=== PATIENT | male | born 1940 | race Caucasian/White ===

== ENCOUNTER 2018-05-12 13:07 | Observation (INO) | payer OTHER ==
--- OUTSIDE RECORDS SUMMARY | 2018-05-12 13:09 | XMS REPORT ---
:1940 Author Organization eClinicalWorks Care Team Providers Name Role Phone Rudy Fair Provider Role Unavailable Allergies No Known Allergies Problems Problem Type Condition Code Onset Dates Condition Status Problem Hypertension I10 Active Problem Paroxysmal a-fib I48.0 Active Problem Chronic urinary tract infection N39.0 Active Problem Gastritis without bleeding, K29.70 Active unspecified chronicity, unspecified gastritis type Assessment Esophageal stenosis K22.2 Active Problem Odynophagia R13.10 Active Assessment Gastritis without bleeding, K29.70 Active unspecified chronicity, unspecified gastritis type Problem Esophageal stenosis K22.2 Active Problem 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 Problem Renal disease N28.9 Active Problem Calculus of kidney and ureter N20.2 Active Problem Hx of urinary frequency Z87.898 Active Assessment Renal disease N28.9 Active Assessment Paroxysmal a-fib I48.0 Active Assessment Allergic rhinitis, seasonal J30.2 Active Assessment Hypertension I10 Active Problem Allergic rhinitis, seasonal J30.2 Active Problem Hyperlipemia, mixed E78.2 Active Assessment Hyperlipemia, mixed E78.2 Active Problem Back pain M54.9 Active Problem Hyperglycemia R73.9 Active Medications Medication Code Code Instructions Start End Status Dosage System Date Date Nasonex [facility] 47654812076 50 MCG/ACT Active 2 sprays in Nasally Once a each day nostril Aspirin 81 [facility] 94014212998 81 MG Orally Active 1 tablet Once a day Lipitor [facility] 07529984681 40 MG Orally Active 1 tablet Once a day Metoprolol ND 02604285559 25 MG Orally Active 1 tablet Tartrate Twice a day with food Lipitor ND 97041910146 40 MG Active TAKE 1 TABLET ONE TIME DAILY Metoprolol ND 62514324252 25 MG Orally Active 1 tablet Tartrate Twice a day with food Vascepa [facility] 95497402820 1 GM Orally Apr 12, Aug 10, Active 2 capsules Twice a day 2017 2017 with meals Results No Known Results Summary Purpose eClinicalWorks Submission
--- OUTSIDE RECORDS SUMMARY | 2018-05-12 13:09 | XMS REPORT ---
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 Problem Hypertension I10 Active Assessment Hypertension I10 Active Assessment Renal disease N28.9 Active Assessment Allergic rhinitis, seasonal J30.2 Active Assessment Hyperlipemia, mixed E78.2 Active Assessment Odynophagia R13.10 Active Problem Chronic urinary tract infection N39.0 Active Assessment Paroxysmal a-fib I48.0 Active Problem Paroxysmal a-fib I48.0 Active Medications Medication Code Code Instructions Start End Status Dosage System Date Date Nasonex [facility] 30211122455 50 MCG/ACT Active 2 sprays Nasally Once a in each day nostril Metoprolol [facility] 25975641034 25 MG Orally Active 1 tablet Tartrate Twice a day with food Lipitor [facility] 74150641638 40 MG Orally Active 1 tablet Once a day Aspirin 81 [facility] 68721145459 81 MG Orally Active 1 tablet Once a day Results No Known Results Summary Purpose eClinicalWorks Submission
--- OUTSIDE RECORDS SUMMARY | 2018-05-12 13:09 | XMS REPORT ---
[...] Active myelopathy Problem Hypertension I10 Active Assessment Paroxysmal a-fib I48.0 Active Problem Chronic urinary tract infection N39.0 Active Problem Paroxysmal a-fib I48.0 Active Medications Medication Code Code Instructions Start End Date Status Dosage System Date Metoprolol [facility] 47865420425 25 MG Orally Active 1 tablet Tartrate Twice a day with food Lipitor [facility] 00006611899 40 MG Orally Active 1 tablet Once a day Results No Known Results Summary Purpose eClinicalWorks Submission
[2018-05-12] MEDS ORDERED: NITROGLYCERIN 0.4 MG/TAB SL ONE (13:19)
[2018-05-12] MEDS ORDERED: ASPIRIN 81 MG CHEWABLE TABLET ONE (13:19)
[2018-05-12] MEDS ORDERED: ONDANSETRON 4 MG/2 ML VIAL ONE (13:20)
[2018-05-12] MEDS ORDERED: MORPHINE 4 MG/ML SYR ONE (13:20)
[2018-05-12] MEDS ORDERED: FENTANYL CITR 100 MCG/2 ML ONE ×2 (13:25→13:46)
[2018-05-12] MEDS ORDERED: NA CHLORIDE 0.9% 1,000 ML ONE (13:25)
[2018-05-12 13:33] LABS: Absolute Lymphocytes (CBC) 1.7 K/uL (0.7-4.9); Absolute Monocytes 0.6 K/uL (0.1-1.3); Absolute Neutrophil 4.2 K/uL (1.8-8.0); Basophils % 0.9 % (0-1.3); Eosinophils % 2.3 % (0-4.4); Lymphocytes % 25.5 % (15.3-44.8); MCH 31.5 pg (27.0-35.0); MCV 91.6 fL (80-100); MPV 9.3 fL (7.6-11.3); Monocytes % 8.6 % (3.3-12.3); RBC Red Blood Cell Count 4.48 M/uL (4.33-5.43)
[2018-05-12 13:40] LABS: Protime INR 1.04
[2018-05-12 13:52] LABS: ALT/SGPT 31 U/L (12-78); AST/SGOT 22 U/L (15-37); Albumin 3.9 g/dL (3.4-5.0); Alkaline Phosphatase 96 U/L (45-117); BUN Blood Urea Nitrogen 22 mg/dL (7-18); Bicarbonate 30 mmol/L (21-32); Bilirubin Direct 0.2 mg/dL (0-0.2); Bilirubin Total 0.6 mg/dL (0.2-1.0); Creatine Phosphokinase 70 U/L (39-308); Glucose Level 105 mg/dL (74-106); NT PRO-BNP 560 pg/mL (<450); Potassium 4.3 mmol/L (3.5-5.1); Protein, Total 7.1 g/dL (6.4-8.2); Sodium Level 140 mmol/L (136-145); Troponin (Emerg Dept Use Only) < 0.02 ng/mL (0.0-0.045)
--- NOTE | 2018-05-12 14:02 | RAD REPORT ---
EXAM DESCRIPTION: RAD - Chest Single View - 05/12/2018 1:33 pm CLINICAL HISTORY: Chest pain, diaphoretic COMPARISON: August 2015 TECHNIQUE: AP portable chest image was obtained 1317 hours . FINDINGS: Mild chronic interstitial lung disease is evident accentuated by shallow inspiration. Lung base atelectasis present. Heart and vasculature are normal. No measurable pleural effusion and no pn eumothorax. No gross bony abnormality seen. No acute aortic findings suspected. IMPRESSION: No acute cardiopulmonary process. No significant interval change.
--- NOTE | 2018-05-12 14:36 | RAD REPORT ---
EXAM DESCRIPTION: CT - Chest For Pe Angio - 05/12/2018 2:17 pm CLINICAL HISTORY: Chest pain, shortness of breath COMPARISON: Portable chest same date TECHNIQUE: Dynamically enhanced 3 mm thick images of the chest were obtained during administration o f approximately 150mL Isovue 370 IV contrast. Coronal and oblique MIP reconstruction images were gene rated and reviewed. Exam utilizes a protocol to evaluate the pulmonary arterial tree. All CT scans are performed using dose optimization technique as appropriate and may include automated exposure control or mA/KV adjustment according to patient size. FINDINGS: No pulmonary emboli are identified. The aorta as imaged shows no acute or suspicious finding. No pericardial thickening or effusion. No focal mass or consolidation. Interstitial markings are prominent in the lower lung villa. This is nonspecific in could be chronic interstitial lung disease or minimal interstitial edema or infiltrat e. No pleural effusion or pleural thickening. No mediastinal or hilar suspicious masses. No chest wall masses or abnormal axillary lymphadenopathy. Disc and bony degenerative changes are present. No pathologic bone process suspected. IMPRESSION: No pulmonary emboli identified. No mass or consolidation. Prominent lung base interstitial markings accentuated by motion. Fibrosis, interstitial edema and min imal interstitial infiltrate can have a similar appearance.
[2018-05-12] MEDS ORDERED: ENOXAPARIN 100 MG/ML SYR SQ ONE (15:00)
[2018-05-12] MEDS ORDERED: HYDROMORPHONE HCL 0.5 MG/0.5 ML INJ ONE ×2 (15:33→17:52)
--- NOTE | 2018-05-12 15:56 | EDPHYS ---
Physician Documentation [facility] Name: John Rowan Age: 77 yrs Sex: Male : 1940 Arrival Date: 05/12/2018 Time: 13:11 Bed 2 Private MD: Flakito Combs ED Physician Clayton Dickinson HPI: 05/12 14:40 This 77 yrs old Male presents to ER via Ambulatory with complaints of Chest rn Pain. 14:40 The patient or guardian reports chest pain that is located primarily in the anterior rn chest wall, left. Onset: just prior to arrival. The pain does not radiate. Associated signs and symptoms: Pertinent positives: diaphoresis, Pertinent negatives: abdominal pain, recent travel, shortness of breath, syncope, vomiting. 14:41 Duration: The patient or guardian reports a single episode, that is still ongoing. rn Severity of pain: At its worst the pain was severe in the emergency department the pain is unchanged. The patient has not experienced similar symptoms in the past. The patient has not recently seen a physician. Reports 1 hour of left sided chest pain, tight and dull, non-radiating. No sob, no trauma. . Historical: - Allergies: 13:41 No Known Allergies; la1 - PMHx: 13:41 Hypertension; High Cholesterol; irregular HR; la1 - PSHx: 13:41 back surgery; shoulder surgery; la1 - Immunization history:: Adult Immunizations up to date. - Social history:: Smoking status: Patient/guardian denies using tobacco. - Ebola Screening: : No symptoms or risks identified at this time. - Family history:: not pertinent. - Hospitalizations: : No recent hospitalization is reported. ROS: 14:41 Constitutional: Negative for fever, chills, and weight loss, Eyes: Negative for injury, rn pain, redness, and discharge, Neck: Negative for injury, pain, and swelling, Cardiovascular: + chest pain Respiratory: Negative for shortness of breath, cough, wheezing Abdomen/GI: Negative for abdominal pain, nausea, vomiting, diarrhea, and constipation, MS/Extremity: Negative for injury and deformity, Skin: Negative for injury, rash, and discoloration, Neuro: Negative for headache, weakness, numbness, tingling, and seizure. Exam: 14:41 Constitutional: This is a well developed, well nourished patient who is awake, alert, rn diaphoretic, and clutching chest Head/Face: Normocephalic, atraumatic. Eyes: Pupils equal round and reactive to light, extra-ocular motions intact. Lids and lashes normal. Conjunctiva and sclera are non-icteric and not injected. Cornea within normal limits. Periorbital areas with no swelling, redness, or edema. Neck: Trachea midline, no thyromegaly or masses palpated, and no cervical lymphadenopathy. Supple, full range of motion without nuchal rigidity, or vertebral point tenderness. No Meningismus. Cardiovascular: Regular rate and rhythm with a normal S1 and S2. No gallops, murmurs, or rubs. Normal PMI, no JVD. No pulse deficits. Respiratory: mild tachypnea, clear bilateral breath sounds Abdomen/GI: Soft, non-tender, with normal bowel sounds. No distension or tympany. No guarding or rebound. No evidence of tenderness throughout. Skin: Clammy and diaphoretic MS/ Extremity: Pulses equal, no cyanosis. Neurovascular intact. Full, normal range of motion. Equal circumference. Neuro: Awake and alert, GCS 15, oriented to person, place, time, and situation. Cranial nerves II-XII grossly intact. Motor strength 5/5 in all extremities. Sensory grossly intact. Vital Signs: 13:36 BP 102 / 79; Pulse 84; Resp 28; Temp 98.6(O); Pulse Ox 95% on 2 lpm NC; la1 13:44 Weight 88 kg; la1 14:17 BP 138 / 69; Pulse 73; Resp 22; Pulse Ox 96% on 2 lpm NC; la1 15:09 BP 114 / 76; Pulse 75; Resp 18; Pulse Ox 98% on 2 lpm NC; Pain 3/10; ph 16:06 BP 119 / 73; Pulse 71; Resp 18; Pulse Ox 100% on 2 lpm NC; ph 16:58 BP 111 / 78; Pulse 68; Resp 18; Temp 97.8; Pulse Ox 98% on R/A; ph MDM: 13:15 Patient medically screened. rn 13:44 ED course: [address] elevation or ischemic changes, improved pain, put in order rn for stat creatinine for ct PE protocol. 13:51 ED course: Creatinine 1.6 per lab, given normal ECGs and pleuritic pain with relative rn hypotension, risk to kidneys understood and benefit of diagnosis in this diaphoretic and uncomfortable man outweighs risks. . 14:39 ED course: CT PE protocol negative, paging Dr. Akbar for chest pain. . rn 14:41 ED course: Consulted with Dr. Akbar, ok to admit here and he will consult, heidy rn ordered for suspected NSTEMI.. 14:58 Differential diagnosis: acute myocardial infarction, acute pericarditis, anxiety, rn coronary artery disease chest wall pain, costochondritis, pericarditis, pleurisy, pneumonia, pneumothorax, pulmonary embolus, stable angina, thoracic aortic disection. The patient was given aspirin in the Emergency Department. Data reviewed: vital signs, nurses notes, lab test result(s), EKG, radiologic studies, CT scan, plain films, and as a result, I will admit patient. Counseling: I had a detailed discussion with the patient and/or guardian regarding: the historical points, exam findings, and any diagnostic results supporting the discharge/admit diagnosis, lab results, radiology results, the need for further work-up and treatment in the hospital. Response to treatment: the patient's symptoms have markedly improved after treatment, and as a result, I will admit patient. Admission orders: after a detailed discussion of the patient's condition and case, the admit orders are written by me. 05/12 13:15 Order name: Basic Metabolic Panel; Complete Time: 13:54 rn 05/12 13:15 Order name: CBC with Diff; Complete Time: 13:45 rn 05/12 13:15 Order name: Ckmb; Complete Time: 13:54 rn 05/12 13:15 Order name: CPK; Complete Time: 13:54 rn 05/12 13:15 Order name: LFT's; Complete Time: 13:54 rn 05/12 13:15 Order name: Magnesium; Complete Time: 13:54 rn 05/12 13:15 Order name: NT PRO-BNP; Complete Time: 13:54 rn 05/12 13:15 Order name: PT-INR; Complete Time: 13:54 rn 05/12 13:15 Order name: Ptt, Activated; Complete Time: 13:54 rn 05/12 13:15 Order name: Troponin (emerg Dept Use Only); Complete Time: 13:54 rn 05/12 13:15 Order name: XRAY Chest (1 view); Complete Time: 14:26 rn 05/12 13:45 Order name: CT Chest For PE Angio; Complete Time: 14:37 rn 05/12 13:45 Order name: Creatinine for detailer furniture 05/12 14:39 Order name: Troponin (emerg Dept Use Only); Complete Time: 15:51 rn 05/12 13:15 Order name: EKG; Complete Time: 13:16 rn 05/12 13:15 Order name: Cardiac monitoring; Complete Time: 13:31 rn 05/12 13:15 Order name: EKG - Nurse/Tech; Complete Time: 13:31 rn 05/12 13:15 Order name: IV Saline Lock; Complete Time: 13:29 rn 05/12 13:15 Order name: Labs collected and sent; Complete Time: 13:31 rn 05/12 14:38 Order name: EKG; Complete Time: 14:39 rn 05/12 13:15 Order name: O2 Per Protocol; Complete Time: 13:31 rn 05/12 13:15 Order name: O2 Sat Monitoring; Complete Time: 13:31 rn Administered Medications: 13:12 Drug: morphine 4 mg Route: IVP; Site: right antecubital; ss 14:19 Follow up: Response: No adverse reaction; Pain is decreased la1 13:12 Drug: Zofran 4 mg Route: IVP; Site: right antecubital; ss 14:19 Follow up: Response: No adverse reaction la1 13:15 Drug: Nitroglycerin 0.4 mg Route: Sublingual; ss 14:19 Follow up: Response: No adverse reaction; Pain is decreased la1 13:15 Drug: NS 0.9% 500 ml Route: IV; Rate: bolus; Site: right antecubital; ss 13:17 Drug: fentaNYL (PF) 50 mcg Route: IVP; Site: right antecubital; ss 14:19 Follow up: Response: No adverse reaction; Pain is decreased la1 13:43 Not Given (Other Intervention Used): fentaNYL (PF) 50 mcg IVP once la1 13:43 Drug: fentaNYL (PF) 25 mcg Route: IVP; Site: right antecubital; la1 14:19 Follow up: Response: No adverse reaction; Pain is decreased la1 15:04 Drug: Lovenox 1 mg/kg {Note: 90 mg given.} Route: Sub-Q; Site: right lower abdomen; ph 16:05 Follow up: Response: No adverse reaction ph 15:30 Drug: Dilaudid 0.5 mg Route: IVP; Site: right antecubital; hb 15:57 Follow up: Response: No adverse reaction hb 17:53 Drug: Dilaudid 0.5 mg Route: IVP; Site: right antecubital; ph 17:53 Follow up: Response: No adverse reaction; Pain is decreased ph Disposition: 05/12/18 15:55 Hospitalization ordered by Flakito Combs for Observation. Preliminary diagnosis is Chest pain, unspecified. - Bed requested for Telemetry/MedSurg (observation). - Status is Observation. ph - Condition is Stable. - Problem is new. - Symptoms have improved. UTI on Admission? No Signatures: Dispatcher [employer] EDMS Fadia Brandon Roman, MD MD rn Smirch, Shelby RN YOLANDA Payam Dodge RN RN la Deborah Barnhart RN RN [facility]ose, RN RN Corrections: (The following items were deleted from the chart) 16:43 15:55 Hospitalization Ordered by Flakito Combs DO for Observation. Preliminary bd diagnosis is Chest pain, unspecified. Bed requested for Telemetry/MedSurg (observation). Status is Observation. Condition is Stable. Problem is new. Symptoms have improved. UTI on Admission? No. rn 17:56 16:43 05/12/2018 15:55 Hospitalization Ordered by Flakito Combs DO for Observation. ph Preliminary diagnosis is Chest pain, unspecified. Bed requested for Telemetry/MedSurg (observation). Status is Observation. Condition is Stable. Problem is new. Symptoms have improved. UTI on Admission? No. bd
--- NOTE | 2018-05-12 15:56 | ER ---
Nurse's Notes [facility] Name: John Rowan Age: 77 yrs Sex: Male : 1940 Arrival Date: 05/12/2018 Time: 13:11 Bed 2 Private MD: Flakito Combs Diagnosis: Chest pain, unspecified Presentation: 05/12 13:35 Presenting complaint: Patient states: sudden onset severe chest pain 1 hour KILN STOKER. la1 Transition of care: patient was not received from another setting of care. Onset of symptoms was May 12, 2018. Risk Assessment: Do you want to hurt yourself or someone else? Patient reports no desire to harm self or others. Initial Sepsis Screen: Does the patient meet any 2 criteria? No. Patient's initial sepsis screen is negative. Does the patient have a suspected source of infection? No. Patient's initial sepsis screen is negative. Care prior to arrival: None. 13:35 Method Of Arrival: Ambulatory la1 13:35 Acuity: SIOBHAN 2 la1 Historical: - Allergies: 13:41 No Known Allergies; la1 - PMHx: 13:41 Hypertension; High Cholesterol; irregular HR; la1 - PSHx: 13:41 back surgery; shoulder surgery; la1 - Immunization history:: Adult Immunizations up to date. - Social history:: Smoking status: Patient/guardian denies using tobacco. - Ebola Screening: : No symptoms or risks identified at this time. - Family history:: not pertinent. - Hospitalizations: : No recent hospitalization is reported. Screenin:39 Abuse screen: Denies threats or abuse. Nutritional screening: No deficits noted. la1 Tuberculosis screening: No symptoms or risk factors identified. Fall Risk None identified. Assessment: 13:37 General: Appears uncomfortable, Behavior is cooperative, anxious. Pain: Complains of la1 pain in chest Pain does not radiate. Pain currently is 10 out of 10 on a pain scale. Quality of pain is described as throbbing, Pain began 1 hour ago. Neuro: Level of Consciousness is awake, alert, obeys commands, Oriented to person, place, time, situation. Cardiovascular: Heart tones S1 S2 present Capillary refill < 3 seconds Rhythm is irregular. Respiratory: Airway is patent Respiratory effort is even, unlabored, Respiratory pattern is regular, symmetrical, tachypnea Breath sounds are clear bilaterally. GI: Abdomen is round non-distended, Bowel sounds present X 4 quads. Abd is soft and non tender X 4 quads. : No signs and/or symptoms were reported regarding the genitourinary system. Derm: Skin is diaphoretic, Skin temperature is cool. 14:45 Reassessment: Patient appears in no apparent distress at this time. Patient and/or ph family updated on plan of care and expected duration. Pain level reassessed. Patient is alert, oriented x 3, equal unlabored respirations, skin warm/dry/pink. Pt resting quietly, rates pain 3/10 and denies nausea or SOB, family at bedside, VSS, will continue to monitor. 15:31 Reassessment: Pt reports sharp left sided cheat pain 7/10. Dr. Dickinson notified, repeat hb EKG completed and Dilaudid administered as ordered. Family remains at bedside. 16:05 Reassessment: Patient appears in no apparent distress at this time. Patient and/or ph family updated on plan of care and expected duration. Pain level reassessed. Patient is alert, oriented x 3, equal unlabored respirations, skin warm/dry/pink. Pt reports that pain has decreased to 3/10, denies SOB or nausea, Dr Combs at bedside to speak w/ pt and family. 17:00 Reassessment: Patient appears in no apparent distress at this time. Patient and/or ph family updated on plan of care and expected duration. Pain level reassessed. Patient is alert, oriented x 3, equal unlabored respirations, skin warm/dry/pink. 17:35 Reassessment: Report called to YOLANDA Lamb. 17:45 Reassessment: Pt c/o chest pain 8/10 after repositioning in bed, ERP notified, see MAR. ph Vital Signs: 13:36 BP 102 / 79; Pulse 84; Resp 28; Temp 98.6(O); Pulse Ox 95% on 2 lpm NC; la1 13:44 Weight 88 kg; la1 14:17 BP 138 / 69; Pulse 73; Resp 22; Pulse Ox 96% on 2 lpm NC; la1 15:09 BP 114 / 76; Pulse 75; Resp 18; Pulse Ox 98% on 2 lpm NC; Pain 3/10; ph 16:06 BP 119 / 73; Pulse 71; Resp 18; Pulse Ox 100% on 2 lpm NC; ph 16:58 BP 111 / 78; Pulse 68; Resp 18; Temp 97.8; Pulse Ox 98% on R/A; ph Vitals: 15:09 Cardiac Rhythm Assessment Sinus rhythm. ph ED Course: 13:11 Patient arrived in ED. sb2 13:11 Flakito Combs DO is Private Physician. sb2 13:15 Clayton Dickinson MD is Attending Physician. rn 13:18 Inserted saline lock: 20 gauge in right antecubital area, using aseptic technique. ss Blood collected. Oxygen administration via nasal cannula \T\ 2L/min. 13:33 XRAY Chest (1 view) In Process Unspecified. EDMS 13:35 Payam Dodge, YOLANDA is Primary Nurse. la1 13:36 Triage completed. la1 13:37 Arm band placed on right wrist. EKG completed in triage. Results shown to MD. la1 13:38 Placed in gown. Bed in low position. Call light in reach. patient assessment coordinator on. Pulse ox la1 on. NIBP on. 14:17 CT Chest For PE Angio In Process Unspecified. EDMS 15:55 Flakito Combs DO is Hospitalizing Provider. rn Administered Medications: 13:12 Drug: morphine 4 mg Route: IVP; Site: right antecubital; ss 14:19 Follow up: Response: No adverse reaction; Pain is decreased la1 13:12 Drug: Zofran 4 mg Route: IVP; Site: right antecubital; ss 14:19 Follow up: Response: No adverse reaction la1 13:15 Drug: Nitroglycerin 0.4 mg Route: Sublingual; ss 14:19 Follow up: Response: No adverse reaction; Pain is decreased la1 13:15 Drug: NS 0.9% 500 ml Route: IV; Rate: bolus; Site: right antecubital; ss 13:17 Drug: fentaNYL (PF) 50 mcg Route: IVP; Site: right antecubital; ss 14:19 Follow up: Response: No adverse reaction; Pain is decreased la1 13:43 Not Given (Other Intervention Used): fentaNYL (PF) 50 mcg IVP once la1 13:43 Drug: fentaNYL (PF) 25 mcg Route: IVP; Site: right antecubital; la1 14:19 Follow up: Response: No adverse reaction; Pain is decreased la1 15:04 Drug: Lovenox 1 mg/kg {Note: 90 mg given.} Route: Sub-Q; Site: right lower abdomen; ph 16:05 Follow up: Response: No adverse reaction ph 15:30 Drug: Dilaudid 0.5 mg Route: IVP; Site: right antecubital; hb 15:57 Follow up: Response: No adverse reaction hb 17:53 Drug: Dilaudid 0.5 mg Route: IVP; Site: right antecubital; ph 17:53 Follow up: Response: No adverse reaction; Pain is decreased ph Outcome: 15:55 Decision to Hospitalize by Provider. rn 17:56 Patient left the ED. ph Signatures: Dispatcher [employer] EDMS Clayton Dickinson MD MD rn Smirch, Shelby, RN RN ss Payam Dodge RN RN la1 Deborah Barnhart RN RN Harmony Richardson RN RN Daily Waller sb2 Corrections: (The following items were deleted from the chart) 13:31 13:12 fentaNYL (PF) 50 mcg IVP in right antecubital ss
[2018-05-12] MEDS ORDERED: SODIUM CHLORIDE 0.9% 10ML INJ IV PRN (16:19)
[2018-05-12] MEDS ORDERED: ONDANSETRON 4 MG/2 ML VIAL IV PRN (16:19)
[2018-05-12] MEDS ORDERED: TRAMADOL HCL 50 MG TAB PO PRN (16:19)
[2018-05-12] MEDS ORDERED: HYDROCODONE/APAP 7.5/325 MG TAB PO PRN (16:19)
[2018-05-12] MEDS ORDERED: NITROGLYCERIN 0.4 MG/TAB SL PRN (16:19)
[2018-05-12] MEDS ORDERED: ACETAMINOPHEN 500 MG TAB PO PRN (16:19)
--- NOTE | 2018-05-12 16:31 | P.HP ---
Certification for Inpatient Patient admitted to: Observation With expected LOS: <2 Midnights Patient will require the following post-hospital care: None Practitioner: I am a practitioner with admitting privileges, knowledge of patient current condition, hospital course, and medical plan of care. Services: Services provided to patient in accordance with Admission requirements found in Title 42 Section 412.3 of the Code of Federal Regulations Patient History Date of Service: 05/12/18 Primary Care Provider: Dr. Fair; Cardiology-Dr. Akbar; GI-Dr. Terry Reason for admission: Chest pain History of Present Illness: 77-year-old male presented emergency room with chest pain. Patient presented with chest pain the left side. The pain was intense. He was associated with some diaphoresis. The patient came to the ER for further evaluation. In the ER patient was initially assessed by Cardiology. Chest pain was typical for CAD. Initial EKG and subsequent EKG unremarkable. Initial cardiac enzymes unremarkable. Chest pain improved with medication. Patient admitted for further evaluation. In the ER lab white count 6.6, hemoglobin 14. Sodium 140, potassium 4.3. BUN of 22, creatinine 1.6 with a GFR 42. Glucose 105. Initial cardiac enzymes unremarkable. BNP 560. Chest x-ray unremarkable. CT of the chest showed no pulmonary embolism, mass, or consolidation. When I saw the patient ER, pain was much improved. This patient still had some occasional left-sided chest pain. Family reports that he heard himself the other day while leaning over his boat. He recalls using his right arm to pull himself. He hit himself in the chest area. Patient also reports a history of hypertension, hyperlipidemia, GERD and gastric ulcers. Patient had EGD about 6 weeks ago await GI. He was found to have some stomach ulcers. Patient has been off aspirin since that time. Patient does not smoke or drink alcohol. Patient has seen Cardiology in the past. No recent cardiac evaluation. Allergies No Known Allergies Allergy (Verified 09/07/15 16:07) Home medications list reviewed: Yes Home Medications: Atorvastatin Calcium [Lipitor] 40 mg PO DAILY 09/07/15 Metoprolol Succinate [Toprol Xl] 25 mg PO BID 09/07/15 Aspirin 81 mg PO DAILY 09/08/15 - Past Medical/Surgical History Diabetic: No -: Hypertension -: Hyperlipidemia -: Gastric ulcer -: GERD -: Colonoscopy/EGD -: Back surgery -: Shoulder surgery Psychosocial/ Personal History: Patient is . He has children. - Family History Mother -: Heart disease (Grandmother with heart disease) - Social History Smoking Status: Never smoker Alcohol use: No CD- Drugs: No Caffeine use: Yes Place of Residence: Home Review of Systems General: Weakness, As per HPI Eyes: Unremarkable ENT: Unremarkable Respiratory: Unremarkable Cardiovascular: Chest Pain, As per HPI Gastrointestinal: Unremarkable Genitourinary: Unremarkable Musculoskeletal: Back Pain, As per HPI Integumentary: Unremarkable Neurological: Unremarkable Lymphatics: Unremarkable Physical Examination - Physical Exam General: Alert, In no apparent distress, Oriented x3, Cooperative HEENT: Atraumatic, Normocephalic, PERRLA, Mucous membr. moist/pink Neck: Supple, No Thyromegaly Respiratory: Clear to auscultation bilaterally, Normal air movement Cardiovascular: Normal pulses, Regular rate/rhythm, Other (Pain to ribcage area on the left side noted with palpation. ) Gastrointestinal: Normal bowel sounds, Soft and benign, Non-distended, No tenderness, No masses, No rebound, No guarding Musculoskeletal: No erythema, No warmth, Tenderness (point tenderness to the left rib cage region with palpation) Integumentary: No tenderness/swelling, No erythema, No warmth, No cyanosis Neurological: Normal speech, Normal strength at 5/5 x4 extr, Normal tone, Normal affect - Studies Laboratory Data (last 24 hrs) 05/12/18 13:15: PT 12.3, INR 1.04, APTT 28.9 05/12/18 13:15: WBC 6.6, Hgb 14.1, Hct 41.0, Plt Count 137 L 05/12/18 13:15: Sodium 140, Potassium 4.3, BUN 22 H, Creatinine 1.60 H, Glucose 105, Magnesium 2.0, Total Bilirubin 0.6, AST 22, ALT 31, Alkaline Phosphatase 96 Assessment and Plan Discharge Plan: Home Plan to discharge in: 24 Hours - Advance Directives Does patient have a Living Will: No Does patient have a Durable POA for Healthcare: No - Code Status/Comfort Care Code Status Assessed: Yes (Patient full code) Physician Review Additional Text: Impression: Left-sided chest pain with multiple risk factors. Possible injury/contusion to the ribcage region needs to be considered due to recent accident Hypertension Hyperlipidemia GERD with history of stomach ulcer Mild renal insufficiency likely mild dehydration Plan: Patient has multiple risk factors for heart disease. Patient will be admitted to evaluate chest pain. Will continue monitor cardiac enzymes and telemetry. Will order echocardiogram. Patient will start aspirin, Lipitor, and metoprolol. Patient with history of hypertension and hyperlipidemia. Cardiology consulted. Await further recommendation. Patient may require cardiac evaluation while hospitalized. Patient with history of GERD and stomach ulcer. Will start Protonix IV. Patient with mild renal insufficiency likely mild dehydration. Will start IV fluids. Will recheck lab tomorrow. Patient also with recent injury to the ribcage. Patient with point tenderness to the left ribcage region. Will provide medication for pain. CT scan did not show any contusion. Will reassess in the morning. Time Spent Managing Pts Care (In Minutes): 55
[2018-05-12] MEDS: ENOXAPARIN 40 MG/0.4 ML SQ SCH (17:00)
[2018-05-12] MEDS: NA CHLORIDE 0.9% 1,000 ML IV SCH (18:37)
[2018-05-12] MEDS: METOPROLOL TAR 25 MG TAB PO SCH (18:40)
[2018-05-12] MEDS ORDERED: ATORVASTATIN 40 MG TAB PO SCH (21:00)
[2018-05-12 22:37] LABS: CKMB Creatine Kinase MB 1.6 ng/mL (0.3-3.6); Creatine Phosphokinase 55 U/L (39-308); Troponin I < 0.02 ng/mL (0.0-0.045)
[2018-05-13] MEDS: MORPHINE 4 MG/ML SYR IV PRN ×2 (02:48→08:05)
[2018-05-13] MEDS: METOPROLOL TAR 25 MG TAB PO SCH (05:58)
[2018-05-13] MEDS: NA CHLORIDE 0.9% 1,000 ML IV SCH (05:59)
[2018-05-13 06:13] LABS: Absolute Lymphocytes (CBC) 1.4 K/uL (0.7-4.9); Absolute Monocytes 0.7 K/uL (0.1-1.3); Absolute Neutrophil 3.4 K/uL (1.8-8.0); Basophils % 0.5 % (0-1.3); Eosinophils % 3.3 % (0-4.4); Hematocrit 36.2 % (39.6-49.0); Lymphocytes % 23.9 % (15.3-44.8); MCH 31.5 pg (27.0-35.0); MCV 91.6 fL (80-100); MPV 9.8 fL (7.6-11.3); Monocytes % 11.7 % (3.3-12.3); RBC Red Blood Cell Count 3.95 M/uL (4.33-5.43)
[2018-05-13 06:41] LABS: Urine Appearance CLEAR; Urine Bilirubin NEGATIVE (NEG); Urine Blood NEGATIVE (NEG); Urine Color YELLOW; Urine Glucose NEGATIVE (NEG); Urine Protein NEGATIVE (NEG); Urine Specific Gravity >=1.030 (1.005-1.030); Urine Urobilinogen 0.2 mg/dL (0.2-1.0)
[2018-05-13 06:46] LABS: CKMB Creatine Kinase MB 1.8 ng/mL (0.3-3.6); Creatine Phosphokinase 53 U/L (39-308); Troponin I < 0.02 ng/mL (0.0-0.045)
[2018-05-13 06:51] LABS: Potassium 5.1 mmol/L (3.5-5.1); Thyroid Stimulating Hormone 3.1 uIU/mL (0.360-3.740)
[2018-05-13 06:53] LABS: Urine Microscopic Reflex NO UMIC
--- NOTE | 2018-05-13 08:16 | RAD REPORT ---
EXAM DESCRIPTION: RAD - Chest Pa And Lat (2 Views) - 05/13/2018 7:52 am CLINICAL HISTORY: Chest pain, point tenderness left chest wall COMPARISON: May [address] chest, August 2015 Two view chest TECHNIQUE: PA and lateral views of the chest were obtained. FINDINGS: The lungs are normal volume. No mass, consolidation or failure finding. There is stranding in the right lung base that is not clearly different from comparison. Heart size is normal and shell tral vasculature is within normal limits. No large pleural effusion or pneumothorax seen. No acute bone finding. No gross abnormality of the ribcage. Prior day CT chest study showed no rib lesion or c hest wall abnormality. The examination did not image the portion of the ribcage that extends below th e diaphragm. No aortic abnormality. IMPRESSION: Right lung base interstitial stranding is similar to comparison. No new or progressive f indings. No specific finding to explain left chest wall tenderness.
[2018-05-13] MEDS ORDERED: PANTOPRAZOLE 40 MG INJ IVP SCH (09:00)
[2018-05-13] MEDS ORDERED: ASPIRIN EC 81 MG TAB PO SCH (09:00)
[2018-05-13] MEDS: ENOXAPARIN 40 MG/0.4 ML SQ SCH (09:57)
[2018-05-13] MEDS ORDERED: TIZANIDINE 4 MG TABLET PO PRN (10:53)
[2018-05-13] MEDS ORDERED: METHYLPREDNISOLONE 40 MG INJ IV ONE (10:53)
--- NOTE | 2018-05-13 12:07 | P.DS ---
Admission Date: 05/12/18 Discharge Date: 05/13/18 Primary Care Provider: Dr. Fair; Cardiology-Dr. Akbar; GI-Dr. Terry Disposition: ROUTINE DISCHARGE Discharge Condition: GOOD Reason for Admission: Chest pain Consultations: Cardiology-Dr. Akbar Procedures: CT scan: CLINICAL HISTORY: Chest pain, shortness of breath COMPARISON: Portable chest same date TECHNIQUE: Dynamically enhanced 3 mm thick images of the chest were obtained during administration of approximately 150mL Isovue 370 IV contrast. Coronal and oblique MIP reconstruction images were generated and reviewed. Exam utilizes a protocol to evaluate the pulmonary arterial tree. All CT scans are performed using dose optimization technique as appropriate and may include automated exposure control or mA/KV adjustment according to patient size. FINDINGS: No pulmonary emboli are identified. The aorta as imaged shows no acute or suspicious finding. No pericardial thickening or effusion. No focal mass or consolidation. Interstitial markings are prominent in the lower lung villa. This is nonspecific in could be chronic interstitial lung disease or minimal interstitial edema or infiltrate. No pleural effusion or pleural thickening. No mediastinal or hilar suspicious masses. No chest wall masses or abnormal axillary lymphadenopathy. Disc and bony degenerative changes are present. No pathologic bone process suspected. IMPRESSION: No pulmonary emboli identified. No mass or consolidation. Prominent lung base interstitial markings accentuated by motion. Fibrosis, interstitial edema and minimal interstitial infiltrate can have a similar appearance. Echocardiogram performed. Medical Problem List: Left-sided chest pain. Likely pleuritic in nature. Suspect contusion with muscle spasm to ribcage/left side due to recent injury versus costochondritis Hypertension Hyperlipidemia GERD with history of stomach ulcers in the past Mild renal insufficiency likely mild dehydration Brief History of Present Illness: 77-year-old male presented emergency room with chest pain. Patient presented with chest pain the left side. The pain was intense. He was associated with some diaphoresis. The patient came to the ER for further evaluation. In the ER patient was initially assessed by Cardiology. Chest pain was typical for CAD. Initial EKG and subsequent EKG unremarkable. Initial cardiac enzymes unremarkable. Chest pain improved with medication. Patient admitted for further evaluation. In the ER lab white count 6.6, hemoglobin 14. Sodium 140, potassium 4.3. BUN of 22, creatinine 1.6 with a GFR 42. Glucose 105. Initial cardiac enzymes unremarkable. BNP 560. Chest x-ray unremarkable. CT of the chest showed no pulmonary embolism, mass, or consolidation. When I saw the patient ER, pain was much improved. This patient still had some occasional left-sided chest pain. Family reports that he heard himself the other day while leaning over his boat. He recalls using his right arm to pull himself. He hit himself in the chest area. Patient also reports a history of hypertension, hyperlipidemia, GERD and gastric ulcers. Patient had EGD about 6 weeks ago await GI. He was found to have some stomach ulcers. Patient has been off aspirin since that time. Patient does not smoke or drink alcohol. Patient has seen Cardiology in the past. No recent cardiac evaluation. Hospital Course: Patient presented with chest pain. Patient evaluated in the emergency room. Initial cardiac enzymes unremarkable. Patient was admitted for further evaluation. CT scan showed no pulmonary embolism. No fracture noted. No pneumonia noted. Patient seen and evaluated by Cardiology. Cardiology reports patient has had prior normal stress test. Cardiology does not feel this is cardiac in nature. No need for further intervention is required. Echocardiogram done. Cardiology suspects pleuritic chest pain with mild contusion to the left chest wall with muscle spasm due to recent accident. The patient was working on his boat. He was pulling something out of the boat and hit his left chest wall. This is the likely cause of injury. At discharge patient will be provided medication for pain-tramadol 50 mg 1 pill 3 times a day as needed for pain, muscle relaxer-Zanaflex 2 mg 1 pill twice daily as needed for muscle spasm. Patient may take [id number]-[id number] ibuprofen 400 mg twice daily as needed for pain. Recommendation is to follow up with his PCP in 1 week to monitor his progress. Prior discharge physical therapy will evaluate the patient and make recommendations on exercises. No heavy lifting, pushing or pulling is recommended at this time. Patient will continue with incentive spirometer to prevent pneumonia. Patient has hypertension. Patient will continue with his medication-metoprolol XL 25 mg 1 pill twice daily. Recommendation is to maintain blood pressures less 150/80. Further adjustment can be done by his PCP. Patient has hyperlipidemia. Patient will continue with his medication-Lipitor 40 mg daily. Patient has GERD with history of stomach ulcers. Patient previously taking Prilosec 40 mg 1 pill twice daily. This has been discontinued. Patient will continue with Protonix 40 mg 1 pill once daily. Patient will follow up with GI as directed. Patient with mild renal insufficiency likely from mild dehydration. Improvement noted. Recommendation is to recheck lab-BMP in 1 week to monitor his progress. If this persists patient may require nephrology evaluation as an outpatient. Vital Signs/Physical Exam: Temp Pulse Resp BP Pulse Ox 98.4 F 61 16 107/66 94 05/13/18 08:00 05/13/18 08:00 05/13/18 08:00 05/13/18 08:00 05/13/18 08:00 General: Alert, In no apparent distress, Oriented x3, Cooperative HEENT: Atraumatic, Mucous membr. moist/pink Neck: Supple, No Thyromegaly Respiratory: Clear to auscultation bilaterally, Normal air movement, Other ( Point tenderness to the left ribcage region with palpation.) Cardiovascular: Normal pulses, Regular rate/rhythm Gastrointestinal: Normal bowel sounds, Soft and benign, Non-distended, No tenderness, No masses, No rebound, No guarding Musculoskeletal: No erythema, No tenderness, No warmth Integumentary: No tenderness/swelling, No erythema, No warmth, No cyanosis Neurological: Normal speech, Normal strength at 5/5 x4 extr, Normal tone, Normal affect Lymphatics: No axilla or inguinal lymphadenopathy Laboratory Data at Discharge: WBC 5.7 K/uL (4.3-10.9) 05/13/18 05:14 Hgb 12.5 g/dL (13.6-17.9) L 05/13/18 05:14 Hct 36.2 % (39.6-49.0) L 05/13/18 05:14 Plt Count 117 K/uL (152-406) L 05/13/18 05:14 PT 12.3 SECONDS (9.5-12.5) 05/12/18 13:15 INR 1.04 05/12/18 13:15 APTT 28.9 SECONDS (24.3-36.9) 05/12/18 13:15 Sodium 140 mmol/L (136-145) 05/13/18 05:14 Potassium 5.1 mmol/L (3.5-5.1) 05/13/18 05:14 BUN 19 mg/dL (7-18) H 05/13/18 05:14 Creatinine 1.40 mg/dL (0.55-1.3) H 05/13/18 05:14 Glucose 94 mg/dL (74-106) 05/13/18 05:14 Magnesium 2.0 mg/dL (1.8-2.4) 05/13/18 05:14 Total Bilirubin 0.6 mg/dL (0.2-1.0) 05/12/18 13:15 AST 22 U/L (15-37) 05/12/18 13:15 ALT 31 U/L (12-78) 05/12/18 13:15 Alkaline Phosphatase 96 U/L (45-117) 05/12/18 13:15 Troponin I < 0.02 ng/mL (0.0-0.045) 05/13/18 05:14 Triglycerides 141 mg/dL (<150) 05/13/18 05:14 Cholesterol 142 mg/dL (<200) 05/13/18 05:14 HDL Cholesterol 30 mg/dL (40-60) L 05/13/18 05:14 Cholesterol/HDL Ratio 4.73 05/13/18 05:14 Home Medications: Atorvastatin Calcium [Lipitor] 40 mg PO DAILY 09/07/15 Metoprolol Succinate [Toprol Xl*] 25 mg PO BID 09/07/15 Aspirin 81 mg PO DAILY 09/08/15 Pantoprazole [Protonix Tab] 40 mg PO BID #60 tab 05/13/18 Tizanidine HCl [Zanaflex] 2 mg PO BID PRN #10 capsule 05/13/18 traMADol HCL [Ultram*] 50 mg PO TID PRN #10 tab 05/13/18 New Medications: Pantoprazole [Protonix Tab] 40 mg PO BID #60 tab Tizanidine HCl [Zanaflex] 2 mg PO BID PRN #10 capsule PRN Reason: Muscle Spasms traMADol HCL [Ultram*] 50 mg PO TID PRN #10 tab PRN Reason: Pain Mild Patient Discharge Instructions: 1. Patient will need to follow up with his PCP in 1 week to follow up this hospitalization. 2. Patient presented with chest pain. Patient evaluated in the emergency room. Cardiac enzymes unremarkable. Patient was admitted for further evaluation. CT scan showed no pulmonary embolism. No fracture noted. No pneumonia noted. Patient seen and evaluated by Cardiology. Cardiology reports patient has had prior normal stress test. Cardiology does not feel this is cardiac in nature. No need for further intervention is required. Echocardiogram done. Cardiology suspects pleuritic chest pain with mild contusion to the left chest wall with muscle spasm due to recent accident. Patient given medication during his stay. At discharge patient will be provided medication for pain-tramadol 50 mg 1 pill 3 times a day as needed for pain, muscle relaxer-Zanaflex 2 mg 1 pill twice daily as needed for muscle spasm. Patient may take tqvj-hdu-hnarugl ibuprofen 400 mg twice daily as needed for pain. Recommendation is to follow up with his PCP in 1 week to monitor his progress. Prior to discharge physical therapy will evaluate the patient and make recommendations on exercises. No heavy lifting, pushing or pulling is recommended at this time. Patient will continue with incentive spirometer to prevent pneumonia. 3. Patient has hypertension. Patient will continue with his medication-metoprolol XL 25 mg 1 pill twice daily. Recommendation is to maintain blood pressures less 150/80. Further adjustment can be done by his PCP. 4. Patient has hyperlipidemia. Patient will continue with his medication-Lipitor 40 mg daily. 5. Patient has GERD with history of stomach ulcers. Patient previously taking Prilosec 40 mg 1 pill twice daily. This has been discontinued. Patient will continue with Protonix 40 mg 1 pill once daily. Patient will follow up with GI as directed. 6. Patient with mild renal insufficiency likely from mild dehydration. Improvement noted. Recommendation is to recheck lab-BMP in 1 week to monitor his progress. If this persists patient may require nephrology evaluation as an outpatient. Diet: AHA Activity: No heavy lifting, pushing or pulling Time spent managing pt's care (in minutes): 55
--- NOTE | 2018-05-13 15:55 | CON ---
Date of Consultation: 05/13/[address] Combs service on 05/12/2018. I saw the patient on 05/13/2018. Reason For Consultation: Chest pain. History Of Present Illness: Mr. Rowan is a 77-year-old white male, very well known to me from pre vious office visit and admission. He Has a history of hypertension, dyslipidemia, palpitation, negat myron workup in the past a couple of years ago, echos, and negative stress test. He pulled a muscle wh ile he was working on a boat 2 days ago and the day after he developed some severe sharp chest pain i n the left lateral wall, worse with breathing, worse with movement. No nausea, vomiting, diaphoresis , PND, orthopnea, pedal edema, palpitation, or syncope. Negative EKG, troponins, CPKs, and MBs. [facility] x-ray is negative. Past Medical History: As stated above. Allergies: NONE. Review of Systems: Negative. Social History: Negative. Family History: Negative. Medications: At home include aspirin, Lipitor, Toprol, Protonix, and Prilosec. Physical Examination: Vital signs: Stable, afebrile. HEENT: Negative. Neck: Supple without any lymphadenopathy, JVD, thyromegaly, or bruits. Chest: Clear to auscultation and percussion. Cardiac: Revealed a regular rhythm and rate. No murmurs, gallops, or rubs. Abdomen: Benign. Extremities: Revealed no clubbing, cyanosis, or edema. Laboratory Data: His creatinine was 1.6. BNP was 360. Everything else was negative. Impression And Plan: 1.Pleuritic chest pain. 2.Hypertension, well controlled. 3.Dyslipidemia, well controlled. 4.Palpitation, resolved. The patient has an echocardiogram pending today to rule out pericardial effusion or wall motion abnor malities. I doubt this is going to show anything. If the echocardiogram is normal, Mr. Rowan can go home. I will see him as an outpatient. I will set him up for an outpatient stress test. DONNIE/MICHELLE Voice ID: [id number] Report ID: [id number]
--- NOTE | 2018-05-14 00:35 | EKG ---
Test Date: 2018-05-12 Test Time: 15:25:22 Auto Emissions Technician: REAGAN MEASUREMENT RESULTS: Intervals: Rate: 66 MT: 104 QRSD: 80 QT: 422 QTc: 442 [place]: P: 30 MT: 104 QRS: 34 T: 25 INTERPRETIVE STATEMENTS: Sinus rhythm with short MT Nonspecific ST and T wave abnormality Abnormal ECG Compared to ECG 05/12/2018 14:44:09 Short MT interval now present ST (T wave) deviation now present T-wave abnormality no longer present Electronically Signed On 05-14-18 00:32:26 CDT by Audi Akbar
--- NOTE | 2018-05-14 00:35 | EKG ---
Test Date: 2018-05-12 Test Time: 13:36:59 Periodontist: GENE MEASUREMENT RESULTS: Intervals: Rate: 71 ND: 138 QRSD: 72 QT: 386 QTc: 419 [place]: P: 30 ND: 138 QRS: 9 T: 20 INTERPRETIVE STATEMENTS: Sinus rhythm with premature atrial complexes Nonspecific T wave abnormality Abnormal ECG No previous ECG available for comparison Electronically Signed On 05-14-18 00:32:29 CDT by Audi Akbar
--- NOTE | 2018-05-14 00:35 | EKG ---
Test Date: 2018-05-12 Test Time: 14:44:09 Office Services Clerk: REAGAN MEASUREMENT RESULTS: Intervals: Rate: 75 IA: 140 QRSD: 76 QT: 396 QTc: 442 [place]: P: 51 IA: 140 QRS: 42 T: 33 INTERPRETIVE STATEMENTS: Normal sinus rhythm Nonspecific T wave abnormality Abnormal ECG Compared to ECG 05/12/2018 13:36:59 Atrial premature complex(es) no longer present T-wave abnormality still present Electronically Signed On 05-14-18 00:32:28 CDT by Audi Akbar
--- NOTE | 2018-05-14 08:00 | ECHO ---
HEIGHT: 5 ft 7 in WEIGHT: 194 lb 0 oz DATE OF STUDY: 05/13/[address]: Flakito Combs DO 2-DIMENSIONAL: YES M.MODE: YES DOPPLER: YES COLOR FLOW: YES TDS: YES PORTABLE: DEFINITY: BUBBLE STUDY: DIAGNOSIS: CHEST PAIN, HISTORY OF HYPERTENSION/ HYPERLIPIDEMIA CARDIAC HISTORY: CATHERIZATION: NO SURGERY: NO PROSTHETIC VALVE: NO PACEMAKER: NO MEASUREMENTS (cm) DIASTOLIC (NORMALS) SYSTOLIC (NORMALS) IVSd 1.0 (0.6-1.2) LA Diam 4.7 (1.9-4.0) LVEF 56% LVIDd 4.2 (3.5-5.7) LVIDs 3.0 (2.0-3.5) %FS 29% LVPWd 1.1 (0.6-1.2) Ao Diam 3.2 (2.0-3.7) 2 DIMENSIONAL ASSESSMENT: RIGHT ATRIUM: NORMAL LEFT ATRIUM: DILATED RIGHT VENTRICLE: NORMAL LEFT VENTRICLE: NORMAL TRICUSPID VALVE: NORMAL MITRAL VALVE: NORMAL PULMONIC VALVE: NORMAL AORTIC VALVE: SCLEROSIS PERICARDIAL EFFUSION: NONE AORTIC ROOT: NORMAL LEFT VENTRICULAR WALL MOTION: NORMAL DOPPLER/COLOR FLOW: NORMAL COMMENTS: AORTIC SCLEROSIS NO STENOSIS. NORMAL LEFT VENTRICULAR SIZE AND FUNCTION. NO WALL MOTION ABNORMALITY. LEFT ATRIAL ENLARGEMENT. TECHNOLOGIST: LUPIS COULTER
== END 2018-05-13 15:05 | disposition home or self-care (01) ==
LOC: ER 13:07 → ERHOLD 15:59 → 4TH 17:30
PROVIDERS: ADMIT Family Medicine; ATTEND Family Medicine
DX: R07.81 Pleurodynia (principal); S20.212A Contusion of left front wall of thorax, initial encounter; I35.8 Other nonrheumatic aortic valve disorders; I10 Essential (primary) hypertension; E78.5 Hyperlipidemia, unspecified; K21.9 Gastro-esophageal reflux disease without esophagitis; N28.9 Disorder of kidney and ureter, unspecified; E86.0 Dehydration; Z87.11 Personal history of peptic ulcer disease; W20.8XXA Other cause of strike by thrown, projected or falling object, initial encounter; Y93.19 Activity, other involving water and watercraft
CPT/HCPCS: 36415; 71045; 71046; 71275; 80048 ×2; 80061; 80076; 81003; 82550 ×3; 82553 ×3; 83735 ×2; 83880; 84439; 84443; 84484 ×4; 85025 ×2; 85610; 85730; 93005 ×3; 93306; 96372; 96374; 96375; 97163; 99285; C9113; G0378 ×2; J1170 ×2; J1650 ×2; J2405; J2920; J3010 ×2; J7030 ×3; Q9967